=== PATIENT | male | born 1945 | race Caucasian/White ===

== ENCOUNTER 2019-05-05 23:27 | Inpatient (IN) | payer SELFPAY ==
[~2019-05-05] VITALS: Ht 177.8 cm; Wt 91.6 kg
--- NOTE | 2019-05-05 23:56 | NUR ---
L TOE SWELLING. L BUTTOCKS REDNESS. SCRATCHES NOTED L THIGH.
[2019-05-06] MEDS ORDERED: IV NS 0.9% 1,000 ML BAG IV ONE ×2 (00:30→01:30)
[2019-05-06 00:54] LABS: BASOPHILS # (AUTO) 0.1 /CMM (0.0-0.2); BASOPHILS % (AUTO) 0.4 % (0.0-2.0); HEMATOCRIT 48 % (39-51); HEMOGLOBIN 16.8 g/dL (13.5-17.5); LYMPHOCYTES # (AUTO) 0.9 /CMM (0.8-4.8); LYMPHOCYTES % (AUTO) 5.7 % (20.0-44.0); MEAN CORPUSCULAR HGB CONC 35 g/dl (31.0-36.0); MEAN CORPUSCULAR VOLUME 94 fL (80-96); MONOCYTES # (AUTO) 1.7 /CMM (0.1-1.30); MONOCYTES % (AUTO) 11.3 % (2.0-12.0); NEUTROPHILS # (AUTO) 12.3 /CMM (1.8-8.9); NEUTROPHILS % (AUTO) 82.6 % (43.0-81.0); PLATELET COUNT (AUTO) 313 /CMM (150-450); RED BLOOD CELL COUNT(AUTO) 5.13 MIL/uL (4.5-6.0); WHITE BLOOD COUNT (AUTO) 14.9 K/uL (4.3-11.0)
[2019-05-06 01:10] LABS: APPEARANCE,URINE Slightly Cloudy (CLEAR); BILIRUBIN,URINE SMALL (NEGATIVE); BLOOD, URINE Trace-lysed Ery/uL (NEGATIVE); COLOR,URINE Other (YELLOW); KETONES,URINE 15 (NEGATIVE); LEUKOCYTE ESTERASE ,URINE Negative (NEGATIVE); NITRITE, URINE Negative (NEGATIVE); PH,URINE 5.5 (5.0-8.0); PROTEIN,URINE 100 mg/dl (NEGATIVE); UGLUCOSE 250 MG/DL mg/dL (NEGATIVE); UROBILINOGEN,URINE 0.2 EU/dL (0.2)
[2019-05-06 01:24] LABS: CALCIUM, SERUM 9.7 mg/dL (8.5-10.1); CARBON DIOXIDE 25 mmol/L (21-32); CHLORIDE 99 mmol/L (98-107); CREATININE 1.2 mg/dL (0.6-1.3); GLUCOSE 210 mg/dL (74-106); POTASSIUM 4.1 mmol/L (3.5-5.1); SODIUM SERUM 135 mmol/L (136-145); UREA NITROGEN, BLOOD 21 mg/dL (7-18)
[2019-05-06 01:29] LABS: ALANINE AMINOTRANSFERASE 34 U/L (12-78); ALBUMIN 4.1 g/dL (3.4-5.0); ALKALINE PHOSPHATASE 65 U/L (46-116); ASPARTATE AMINOTRANSFERASE 47 U/L (15-37); BILIRUBIN,DIRECT 0.2 mg/dL (0.0-0.2)
[2019-05-06] MEDS ORDERED: PIPERACILLIN /TAZOBACTAM 3.375 G in IV D5W 50 ML IV ONE (01:30)
[2019-05-06] MEDS ORDERED: VANCOMYCIN 1 GM in IV D5W 250 ML IV ONE (01:30)
[2019-05-06] MEDS ORDERED: PIPERACILLIN /TAZOBACTAM 3.375 G VIAL IV ONE (01:42)
[2019-05-06] MEDS ORDERED: VANCOMYCIN 1 GM VIAL ONE (01:42)
[2019-05-06 01:58] LABS: BACTERIA,URINE Few /HPF (None Seen); SQUAMOUS EPITHELIAL CELL,UR Rare /HPF (None Seen)
[2019-05-06] MEDS ORDERED: ONDANSETRON HCL/PF 4 MG/2 ML VIAL IVP PRN (02:30)
[2019-05-06] MEDS ORDERED: Z GUARD REMEDY 2 OZ OINT TP PRN (02:30)
[2019-05-06] MEDS ORDERED: MAG HYDROX/AL HYDROX/SIMETH 30 ML UDC PO PRN (02:30)
--- NOTE | 2019-05-06 02:38 | NUR ---
REPORT GIVEN TO SUSANA DUVALL.
[2019-05-06 02:50] VITALS: BP 120/84
--- NOTE | 2019-05-06 02:50 | NUR ---
DEGREASER OPERATOR NOTES 0250 PATIENT ARRIVED ON THE UNIT AT 0250 VIA GURNEY. PATIENT ON CONTACT ISOLATION FOR BED BUGS. PATIENT A/O X 1, PATIENT ONLY ABLE TO ANSWER WITH HIS NAME WHEN ASKED. PATIENT DOES NOT COMMUNICATE, NONINTERACTIVE AND NONCONVERSANT WHEN SPOKEN TO. UNABLE TO GET INFORMATION FROM PATIENT. VITAL SIGNS STABLE. ON ROOM AIR, TOLERATING WELL. NO SIGNS OF RESPIRATORY DISTRESS. NO SIGNS OF SHORTNESS OF BREATH. IV SITE RAC #20G, INTACT AND PATENT, FLUSHED. PATIENT HAS WEAKNESS. ENRIQUEZ CATH 16 FR, INTACT, DRAINING WELL, PRICILLA URINE. PATIENT HAS NO COMPLAINTS OF PAIN, NO SIGNS OF FACIAL GRIMACING INDICATING PAIN OR DISCOMFORT. RECEIVED PATIENT DIRTY AND DISHEVELED FROM ER. PATIENT CLEANED UP, DRY, COMFORTABLE. SAFETY PRECAUTIONS IMPLEMENTED; CALL LIGHT WITHIN REACH, BED LOCKED, BED LOWEST POSITION, SIDE RAILS UP X2. WILL CONTINUE TO MONITOR.
--- NOTE | 2019-05-06 02:51 | NUR ---
RN NOTES CORRECTION: PATIENT ARRIVED ON THE UNIT AT 0220.
[2019-05-06] MEDS: IV NS 0.9% 1,000 ML IV PRN ×2 (03:56→14:20)
[2019-05-06 04:00] VITALS: BP 111/65
--- NOTE | 2019-05-06 06:52 | NUR ---
RN CLOSING NOTES PATIENT CURRENTLY ASLEEP, RESTING COMFORTABLY IN BED, EASILY AROUSABLE WHEN YOU STATE HIS FIRST NAME. VITAL SIGNS STABLE. PATIENT REMAINS ON ROOM AIR, TOLERATING WELL. NO SIGNS OF RESPIRATORY DISTRESS, NO SHORTNESS OF BREATH NOTED, RESPIRATIONS EVEN AND UNLABORED. NO SIGNS OF PAIN, NO SIGNS OF FACIAL GRIMACING OR DISCOMFORT INDICATING PAIN. IV SITE RAC #20G, REMAINS INTACT AND PATENT, WITH IVF RUNNING AT 100 ML/HR, NO REDNESS/INFILTRATION NOTED. PATIENT KEPT CLEAN, DRY, COMFORTABLE. CONTACT ISOLATION MAINTAINED. SAFETY PRECAUTIONS IMPLEMENTED; CALL LIGHT WITHIN REACH, BED LOCKED, BED LOWEST POSITION, SIDE RAILS UP X2, BED ALARM ON. WILL ENDORSE TO DAYSHIFT NURSE FOR CONTINUITY OF CARE.
[2019-05-06] MEDS ORDERED: PANT40TA4 PO (07:23)
[2019-05-06] MEDS ORDERED: ATOR10TA PO (07:23)
[2019-05-06] MEDS ORDERED: METF-440 PO (07:23)
[2019-05-06] MEDS ORDERED: AMLO10TA7 PO (07:23)
[2019-05-06] MEDS ORDERED: LOSA100T31 PO (07:23)
[2019-05-06] MEDS ORDERED: METO-357 PO (07:23)
--- NOTE | 2019-05-06 07:35 | NUR ---
ASSEMBLER METAL FURNITURE OPENING NOTES RECEIVED PATIENT IN BED ASLEEP, AROUSABLE TO VERBAL AND TACTILE STIMULI. ALERT AND ORIENTED X2-3 TO NAME, DATE AND PLACE. HOB ELEVATED. NO SOB OBSERVED. SPO2 96% ROOM AIR. ON TELE MONITORING SR: 75. DENIES ANY C/O PAIN NOR DISCOMFORT AT THIS TIME. BED IN LOWEST POSITION, LOCKED. CALL LIGHT WITHIN REACH. F/C INTACT AND PATENT DRAINING PRICILLA COLORED URINE VIA GRAVITY VIA BEDSIDE. RIGHT AC # 20 INTACT AND PATENT INFUSING NS @ 100ML/HR KARTIK WELL. RESTING COMFORTABLY IN BED.
[2019-05-06 08:00] VITALS: BP 111/70
[2019-05-06 08:59] LABS: BASOPHILS % (AUTO) 0.4 % (0.0-2.0); EOSINOPHILS % (AUTO) 0.3 % (0.0-6.0); HEMATOCRIT 42 % (39-51); HEMOGLOBIN 14.2 g/dL (13.5-17.5); LYMPHOCYTES # (AUTO) 1.9 /CMM (0.8-4.8); LYMPHOCYTES % (AUTO) 16.1 % (20.0-44.0); MEAN CORPUSCULAR HGB CONC 34 g/dl (31.0-36.0); MEAN CORPUSCULAR VOLUME 94 fL (80-96); MONOCYTES # (AUTO) 1.8 /CMM (0.1-1.30); NEUTROPHILS # (AUTO) 8.1 /CMM (1.8-8.9); NEUTROPHILS % (AUTO) 68.2 % (43.0-81.0); PLATELET COUNT (AUTO) 273 /CMM (150-450); RED BLOOD CELL COUNT(AUTO) 4.42 MIL/uL (4.5-6.0); WHITE BLOOD COUNT (AUTO) 11.8 K/uL (4.3-11.0)
[2019-05-06 09:15] LABS: CALCIUM, SERUM 8.4 mg/dL (8.5-10.1); CREATININE 1.2 mg/dL (0.6-1.3); POTASSIUM 3.6 mmol/L (3.5-5.1)
--- NOTE | 2019-05-06 10:00 | NUR ---
MS RN NOTES PATIENT'S SISTER LINA GRIER CALLED AND STATED THAT SHE USED TO LIVE WITH PATIENT BUT AT THIS TIME, SISTER CURRENTLY RESIDES AT A PENITENTIARY. LINA'S CONTACT INFO CELL . PHONE CALL WAS TRANSFERRED TO PATIENT'S ROOM.
[2019-05-06 11:05] LABS: LYMPHOCYTES % (MANUAL) 16 % (16-48); MONOCYTES % (MANUAL) 14 % (0-11.0); NEUTROPHILS % (MANUAL) 70 (42-76)
[2019-05-06] MEDS ORDERED: DEXTROSE 50%-WATER 50 ML DISP.SYRIN IV PRN (13:30)
[2019-05-06 16:00] VITALS: BP 111/70
[2019-05-06] MEDS: BLOOD SUGAR DIAGNOSTIC 1 EACH STRIP IN SCH ×2 (17:13→21:46)
[2019-05-06] MEDS: INSULIN REGULAR, HUMAN 100 UNIT/ML 3 ML VIAL SQ PRN ×2 (17:21→23:17)
--- NOTE | 2019-05-06 18:50 | NUR ---
MS RN CLOSING NOTES ALERT AND ORIENTED X2. HOB ELEVATED. NO SOB OBSERVED. DENIES ANY C/O PAIN NOR DISCOMFORT AT THIS TIME. PATIENT OBSERVED WITH INCREASED ALERTNESS COMPARE TO BEGINNING OF SHIFT. DENIES ANY C/O HEADACHE/ DIZZINESS/NAUSEA/VOMITING. PATIENT MORE TALKATIVE NOW. RIGHT AC # 20 INTACT AND PATENT INFUSING NS @ 100ML/HR KARTIK WELL. CONTACT PRECAUTIONS OBSERVED AT ALL TIMES. BED IN LOWEST POSITION, LOCKED. CALL LIGHT WITHIN REACH. IN NO APPARENT DISTRESS.
--- NOTE | 2019-05-06 19:16 | NUR ---
MS RN NOTES PATIENT OFF UNIT FOR CT SCAN WITHOUT CONTRAST.
--- NOTE | 2019-05-06 19:28 | NUR ---
RN NOTES RECEIVED PATIENT JUST CAME BACK FROM RADIOLOGY DEPARTMENT, CALM, RESTING COMFORTABLY, IV ACCESSON HIS RIGHT AC G#20 INTACT AND PATENT, SAFETY MEASURES IN PLACE, ASPIRATION PRECAUTION EMPHASIZE, REPOSITIONED FOR COMFORT, ORIENTED TO UNIT, ROOM AND THE USE OF CALL LIGHT KEEP CLEAN DRY AND COMFORTABLE, WILL CONTINUE TO MONITOR ACCORDINGLY.
--- NOTE | 2019-05-06 19:40 | NUR ---
RN NOTES RECEIVED PHONE CALL FROM PATIENT'S NIECE SPARKLE, INFORMED REGARDING PATIENT'S CURRENT CONDITION. SPARKLE VERBALIZES UNDERSTANDING.
[2019-05-06 20:00] VITALS: BP 126/76
--- NOTE | 2019-05-06 20:18 | NUR ---
RN NOTES PATIENT'S SISTER CALLED, INFORMED HER REGARDING PT'S CURRENT CONDITION. PATIENT IS RESTING COMFORTABLY AT THIS TIME, ALL NEEDS ANTICIPATED, WILL CONTINUE TO MONITOR ACCORDINGLY.
[2019-05-06] MEDS: ATORVASTATIN 10 MG TABLET PO SCH (21:42)
[2019-05-07] MEDS: IV NS 0.9% 1,000 ML IV PRN ×2 (04:37→18:05)
[2019-05-07] MEDS: BLOOD SUGAR DIAGNOSTIC 1 EACH STRIP IN SCH ×4 (07:14→21:44)
[2019-05-07] MEDS: INSULIN REGULAR, HUMAN 100 UNIT/ML 3 ML VIAL SQ PRN ×3 (07:15→21:43)
--- NOTE | 2019-05-07 07:15 | NUR ---
MS JADIEL INITIAL NOTES Received report at bedside. Received patient in bed, sleeping, easily aroused. On contact isolation with result pending on bug infestation as reported. No signs and symptoms of distress. On IVF therapy with no redness noted on site. Safety measures in place. Will continue to monitor and assess patient
[2019-05-07 07:25] LABS: BASOPHILS # (AUTO) 0.1 /CMM (0.0-0.2); BASOPHILS % (AUTO) 0.8 % (0.0-2.0); EOSINOPHILS % (AUTO) 2.2 % (0.0-6.0); HEMATOCRIT 43 % (39-51); HEMOGLOBIN 14.6 g/dL (13.5-17.5); LYMPHOCYTES # (AUTO) 1.9 /CMM (0.8-4.8); LYMPHOCYTES % (AUTO) 21.7 % (20.0-44.0); MEAN CORPUSCULAR HGB CONC 34 g/dl (31.0-36.0); MEAN CORPUSCULAR VOLUME 94 fL (80-96); MONOCYTES % (AUTO) 11.4 % (2.0-12.0); NEUTROPHILS # (AUTO) 5.7 /CMM (1.8-8.9); NEUTROPHILS % (AUTO) 63.9 % (43.0-81.0); PLATELET COUNT (AUTO) 240 /CMM (150-450); WHITE BLOOD COUNT (AUTO) 8.9 K/uL (4.3-11.0)
--- NOTE | 2019-05-07 07:30 | NUR ---
RN NOTES ALL NEEDS ATTENDED AND MET ABLE TO REST AND SLEPT AT INTERVALS, ENDORSED TO AM NURSE FOR CONTINUITY OF CARE.
[2019-05-07] MEDS: PANTOPRAZOLE 40 MG TABLET.DR PO SCH (07:40)
[2019-05-07 07:42] LABS: CALCIUM, SERUM 8.4 mg/dL (8.5-10.1); CREATININE 0.8 mg/dL (0.6-1.3); MAGNESIUM 1.7 mg/dL (1.8-2.4); PHOSPHORUS 2.5 mg/dL (2.5-4.9); POTASSIUM 3.2 mmol/L (3.5-5.1)
[2019-05-07 07:46] LABS: THYROID STIMULATING HORMONE 1.553 uIU/mL (0.358-3.74)
[2019-05-07] MEDS: ASPIRIN 81 MG TAB.CHEW PO SCH (08:36)
[2019-05-07] MEDS: AMLODIPINE BESYLATE 10 MG TABLET PO SCH (08:37)
[2019-05-07] MEDS: METOPROLOL SUCCINATE 50 MG TAB.SR.24H PO SCH (08:37)
--- NOTE | 2019-05-07 09:48 | NUR ---
MS DUVALL Notes Patient transported by transport team to Radiology for CTA as ordered. Addendum: 05/07/19 at 1010 by FRANCISCA BANKS RN Patient returned from Radiology in stable condition. Transported back by transport team
[2019-05-07] MEDS ORDERED: IV NS 0.9% 250 ML IV ONE (09:52)
[2019-05-07] MEDS ORDERED: IOHEXOL-350 100 ML VIAL IV ONE (09:52)
[2019-05-07] MEDS ORDERED: CT SWABBABLE VALVE TRANS SET 1 EA INFUS.SET MC ONE (09:52)
[2019-05-07] MEDS: POTASSIUM CHLORIDE 20 MEQ TAB.PRT.SR PO SCH ×2 (10:28→11:23)
[2019-05-07] MEDS: Magnesium 1GM/D5W 100ML PREMIX 100 ML IV SCH ×2 (11:24→17:57)
--- NOTE | 2019-05-07 14:33 | NUR ---
Social service consult requested by Dr. Hagen for possible APS report. Pt. is a 73 y/o male with PMH of hypertension, DM type 2, and previous stroke treated at [facility] (date unknown) who was admitted to the hospital for rhabdomyolysis. Patient presented to ED via EMS paramedics last night when family went to check on him due to not hearing from him. Per ED notes, paramedics found the patient on the ground at residence, dirty and disheveled, in squalor conditions. SW contacted pt's niece Radha Leone to inquire about pt's home condition. Per Radha, pt's sister Mary was residing with the pt. until she had a stroke and now resides at [facility]. Pt. resides alone. Per niece, pt's home is inhabitable and unsafe. Pt. has no caregivers. SW to file APS report for safety.
--- NOTE | 2019-05-07 18:45 | NUR ---
MS RN CLOSING NOTES Patient awake, alert x1-2 and verbally responsive. Have episodes of confusion and forgetfulness. All due meds given and tolerated. No SOB noted. No signs and symptoms of distress. Kept patient clean, dry and comfortable. Remained on contact isolation for precaution. Electrolytes replaced. dairy machine operator farmworker aware of patient condition at home � to be investigated. Safety measures in place. Bed in lowest position with bed alarm on and call light within reach. Will endorse to oncoming shift nurse
--- NOTE | 2019-05-07 19:30 | NUR ---
MS RN OPENING NOTE PM BEDSIDE REPORT RECIEVED FROM MEGHAN. PATIENT ON CONTACT ISOLATION. PT SEEN Patient awake, alert x1-2, verbally responsive REVIEWED POC QUESTIONS CONCERNS ADDRESSED WILL REINFORCE NEEDED. PT HAVING episodes of confusion and forgetfulness PER REPORT. PT HAS No SOB noted OR ANY signs and symptoms of distress. Safety measures in place. Bed in lowest position with bed alarm on and call light within reach. WILL CONT TO MONITOR.
[2019-05-07 20:05] VITALS: BP 146/71
[2019-05-07] MEDS: ATORVASTATIN 10 MG TABLET PO SCH (21:44)
[2019-05-08] MEDS: QUETIAPINE FUMARATE 25 MG TABLET PO PRN (00:29)
[2019-05-08] MEDS: MAGNESIUM HYDROXIDE 30 ML UDC PO PRN (00:29)
[2019-05-08] MEDS: IV NS 0.9% 1,000 ML IV PRN (05:39)
[2019-05-08] MEDS: BLOOD SUGAR DIAGNOSTIC 1 EACH STRIP IN SCH ×4 (06:51→21:03)
[2019-05-08] MEDS: INSULIN REGULAR, HUMAN 100 UNIT/ML 3 ML VIAL SQ PRN ×3 (06:51→21:04)
[2019-05-08] MEDS: PANTOPRAZOLE 40 MG TABLET.DR PO SCH (06:51)
--- NOTE | 2019-05-08 07:00 | NUR ---
RN PM CLOSING NOTE. PATIENT SEEN IN NO APPARENT DDISTRESS. DENIES PAIN. SAFETY MESARUES IN PLACE. WILL ENDORSE POC AND REPORT TO DAY NURSE. PATIETN CONFUSED ORIETED X1. PATIENT KEEPS STATING THAT HE IS AT HIS HOURSE. HEN REORIENTED HE GETS FRUSTRATED STATES "YOU TRYIN G TO FOOL ME?" WILL ENDORSE TO DAY NRUSE.
[2019-05-08 07:27] LABS: BASOPHILS # (AUTO) 0.1 /CMM (0.0-0.2); BASOPHILS % (AUTO) 0.6 % (0.0-2.0); EOSINOPHILS % (AUTO) 2.4 % (0.0-6.0); HEMATOCRIT 44 % (39-51); HEMOGLOBIN 15.3 g/dL (13.5-17.5); LYMPHOCYTES # (AUTO) 3.1 /CMM (0.8-4.8); LYMPHOCYTES % (AUTO) 31.6 % (20.0-44.0); MEAN CORPUSCULAR HGB CONC 35 g/dl (31.0-36.0); MEAN CORPUSCULAR VOLUME 94 fL (80-96); MONOCYTES # (AUTO) 1.1 /CMM (0.1-1.30); NEUTROPHILS # (AUTO) 5.2 /CMM (1.8-8.9); NEUTROPHILS % (AUTO) 54.4 % (43.0-81.0); PLATELET COUNT (AUTO) 290 /CMM (150-450); RED BLOOD CELL COUNT(AUTO) 4.72 MIL/uL (4.5-6.0); WHITE BLOOD COUNT (AUTO) 9.7 K/uL (4.3-11.0)
[2019-05-08 07:36] LABS: CALCIUM, SERUM 8.6 mg/dL (8.5-10.1); CREATININE 0.8 mg/dL (0.6-1.3); POTASSIUM 3.4 mmol/L (3.5-5.1)
[2019-05-08 08:00] VITALS: BP 186/94
--- NOTE | 2019-05-08 08:00 | NUR ---
m/s process owner: initial assessment received pt in bed in supine position. pt comfortable lying supine and refused to have his behind assessed. instructed to call for assistance. will continue to monitor.
[2019-05-08] MEDS: ASPIRIN 81 MG TAB.CHEW PO SCH (08:15)
[2019-05-08] MEDS: METOPROLOL SUCCINATE 50 MG TAB.SR.24H PO SCH (08:15)
[2019-05-08] MEDS: AMLODIPINE BESYLATE 10 MG TABLET PO SCH (08:15)
[2019-05-08] MEDS: MUPIROCIN OINT 2% 22 GM TUBE TP SCH (09:23)
[2019-05-08] MEDS: CLOTRIMAZOLE 1% 15 GM TUBE TP SCH (09:23)
[2019-05-08 10:00] VITALS: BP 165/76
--- NOTE | 2019-05-08 10:00 | NUR ---
m/s carding doubler: notes pt refused to dress his left leg/knee abrasion/ble. cream applied as ordered. pt refused to be turned and repositioned. instructed to call for assistance. pt wants to lay supine and if he moves his back will hurt as stated. will continue to monitor.
[2019-05-08] MEDS ORDERED: POTASSIUM CHLORIDE 20 MEQ TAB.PRT.SR PO SCH (11:00)
--- NOTE | 2019-05-08 11:34 | NUR ---
m/s housecalls nurse: md visit seen and examined by dr. mcgraw with new orders. orders acknowledged.
--- NOTE | 2019-05-08 12:00 | NUR ---
m/s rack pusher: notes pt remains non-compliant with turning and repositioning despite teaching provided prn. will continue to monitor.
--- NOTE | 2019-05-08 12:40 | NUR ---
m/s dimensional inspector: neuro consult seen and examined by sheba schroeder (analysis specialist) with new orders. orders acknowledged.
--- NOTE | 2019-05-08 13:30 | NUR ---
m/s alarm adjuster: notes consent obtained for cta carotid. electronic instrument trades worker notified, spoke to lamin.
[2019-05-08] MEDS ORDERED: IV NS 0.9% 250 ML IV ONE (13:56)
[2019-05-08] MEDS ORDERED: IOHEXOL-350 100 ML VIAL IV ONE (13:56)
[2019-05-08] MEDS ORDERED: CT SWABBABLE VALVE TRANS SET 1 EA INFUS.SET MC ONE (13:56)
--- NOTE | 2019-05-08 14:15 | NUR ---
m/s outside plant field engineer: notes pt back from cta carotid via bed. instructed to call for assistance. will monitor.
[2019-05-08] MEDS: CLOPIDOGREL BISULFATE 75 MG TABLET PO SCH (14:18)
[2019-05-08] MEDS: HYDROCODONE/APAP 5/325MG 1 EACH TABLET PO PRN (14:18)
--- NOTE | 2019-05-08 14:18 | NUR ---
m/s artist suspect: notes c/o 02/28 generalized discomfort. medicated with norco 1 tab po as ordered. instructed to call for assistance.
--- NOTE | 2019-05-08 15:18 | NUR ---
m/s certified emergency vehicle technician: notes pt resting comfortable and watching tv at this time. voiced no discomfort. instructed to call for assistance.
[2019-05-08 16:00] VITALS: BP 135/101
--- NOTE | 2019-05-08 17:00 | NUR ---
m/s flight engineer: notes dinner served. hob elevated. pt refused insulin coverage for kv=[id number]. instructed to call for assistance. will monitor.
--- NOTE | 2019-05-08 19:05 | NUR ---
m/s lost and found clerk: notes report given to ashley (ruiz) for continuity of care.
[2019-05-08 20:00] VITALS: BP 149/30
[2019-05-08 20:16] VITALS: BP 134/51
[2019-05-08] MEDS: ATORVASTATIN 10 MG TABLET PO SCH (21:08)
[2019-05-09] MEDS: IV NS 0.9% 1,000 ML IV PRN (01:53)
[2019-05-09] MEDS: MAGNESIUM HYDROXIDE 30 ML UDC PO PRN (03:47)
[2019-05-09] MEDS: QUETIAPINE FUMARATE 25 MG TABLET PO PRN (03:47)
[2019-05-09] MEDS: ACETAMINOPHEN 325 MG TABLET PO PRN (03:47)
--- NOTE | 2019-05-09 06:30 | NUR ---
RN PM CLOSING NOTE. PATIENT SEEN IN NO APPARENT DDISTRESS. DENIES PAIN. SAFETY MESARUES IN PLACE. WILL ENDORSE POC AND REPORT TO DAY NURSE. PATIETN CONFUSED ORIETED X3 states he feels sleepy. bed alarm active call light in reach. denies pain
[2019-05-09] MEDS: PANTOPRAZOLE 40 MG TABLET.DR PO SCH (06:39)
[2019-05-09] MEDS: BLOOD SUGAR DIAGNOSTIC 1 EACH STRIP IN SCH ×4 (06:42→22:04)
[2019-05-09] MEDS: INSULIN REGULAR, HUMAN 100 UNIT/ML 3 ML VIAL SQ PRN ×4 (06:42→22:06)
[2019-05-09 07:06] LABS: BASOPHILS # (AUTO) 0.1 /CMM (0.0-0.2); BASOPHILS % (AUTO) 0.7 % (0.0-2.0); EOSINOPHILS % (AUTO) 1.9 % (0.0-6.0); HEMATOCRIT 44 % (39-51); HEMOGLOBIN 15.1 g/dL (13.5-17.5); LYMPHOCYTES # (AUTO) 2.7 /CMM (0.8-4.8); LYMPHOCYTES % (AUTO) 27.9 % (20.0-44.0); MEAN CORPUSCULAR HGB CONC 34 g/dl (31.0-36.0); MEAN CORPUSCULAR VOLUME 94 fL (80-96); MONOCYTES % (AUTO) 10.1 % (2.0-12.0); NEUTROPHILS # (AUTO) 5.7 /CMM (1.8-8.9); NEUTROPHILS % (AUTO) 59.4 % (43.0-81.0); PLATELET COUNT (AUTO) 319 /CMM (150-450); RED BLOOD CELL COUNT(AUTO) 4.68 MIL/uL (4.5-6.0); WHITE BLOOD COUNT (AUTO) 9.6 K/uL (4.3-11.0)
[2019-05-09 07:23] LABS: CALCIUM, SERUM 8.4 mg/dL (8.5-10.1); CREATININE 0.8 mg/dL (0.6-1.3); MAGNESIUM 1.9 mg/dL (1.8-2.4); PHOSPHORUS 3.1 mg/dL (2.5-4.9); POTASSIUM 3.3 mmol/L (3.5-5.1)
[2019-05-09 08:00] VITALS: BP 155/101
--- NOTE | 2019-05-09 08:00 | NUR ---
rn notes received patient in the bed a/ox2/3, patient has no acute respiratory distress , v/s taken bp 155/101 administered scheduled medication, also patient was complaining of pain generalized 05/01 , assist patient turn and reposition q 2 hr using pillows. administered scheduled medication. Needs attended and anticipated, Tapia catheter draining yellow output, infusing NS at 100 ml/hr on right ac area intact. call light within to reach, safety precaution maintained all the time.
[2019-05-09] MEDS: CLOPIDOGREL BISULFATE 75 MG TABLET PO SCH (08:42)
[2019-05-09] MEDS: ASPIRIN 81 MG TAB.CHEW PO SCH (08:42)
[2019-05-09] MEDS: METOPROLOL SUCCINATE 50 MG TAB.SR.24H PO SCH (08:43)
[2019-05-09] MEDS: AMLODIPINE BESYLATE 10 MG TABLET PO SCH (08:43)
[2019-05-09] MEDS: HYDROCODONE/APAP 5/325MG 1 EACH TABLET PO PRN (08:43)
--- NOTE | 2019-05-09 08:43 | NUR ---
rn notes administered narco 5/325 mg po prn for generalized pain 05/01 per patient request, v/s taken bp 155/101, p-83, r20, continued monitoring.
[2019-05-09] MEDS: CLOTRIMAZOLE 1% 15 GM TUBE TP SCH (08:44)
[2019-05-09] MEDS: MUPIROCIN OINT 2% 22 GM TUBE TP SCH (08:44)
[2019-05-09] MEDS ORDERED: POTASSIUM CHLORIDE 20 MEQ TAB.PRT.SR PO ONE (10:00)
--- NOTE | 2019-05-09 10:26 | NUR ---
MS RN NOTE RECEIVED REPORT FROM SARAH DUVALL. PATIENT SLEEPING IN BED, RESTING COMFORTABLY. PATIENT BREATHING IS EVEN AND UNLABORED. PATIENT IN NO ACUTE DISTRESS. NO SOB NOTED. PATIENT BED IS LOCKED AND IN LOWEST POSITION. CALL LIGHT WITHIN REACH. WILL CONTINUE TO MONITOR.
--- NOTE | 2019-05-09 10:58 | NUR ---
MS RN NOTE ORDERS TO REMOVED ENRIQUEZ CATHETER PER DR. PONCE. CARRIED OUT ORDERS FOLLOWED. WILL CONTINUE TO MONITOR FOR URINE OUTPUT.
--- NOTE | 2019-05-09 11:37 | NUR ---
SW filed APS for grave disability and safety concerns at home. APS intake ID#[id number].
[2019-05-09 16:00] VITALS: BP_SYST 151; BP_SYST 157; BP_DIAS 87
[2019-05-09 18:00] VITALS: BP 138/62
--- NOTE | 2019-05-09 18:08 | NUR ---
MS RN NOTE PATIENT HAS BEEN VOIDING THROUGHOUT DAY IN URINAL AND DIAPER. 350 CC NOTED IN URINAL, CLEAR AND YELLOW.
--- NOTE | 2019-05-09 18:51 | NUR ---
MS RN CLOSING NOTE PATIENT IN BED RESTING COMFORTABLY. PATIENT IN NO ACUTE DISTRESS. NO SOB NOTED. PATIENT BREATHING IS EVEN AND UNLABORED. PATIENT KEPT CLEAN, DRY, AND COMFORTABLE. WOUND CARE PROVIDED ORDERED. PATIENT MAINTAINED ON CONTACT ISOLATION PRECAUTIONS. PATIENT EXTREMITIES OFFLOADED ON PILLOWS MUCH PATIENT WOULD ALLOW. ALL NURSING NEEDS MET. PATIENT BED IS LOCKED AND IN LOWEST POSITION. CALL LIGHT WITHIN REACH. WILL ENDORSE CARE TO PM SHIFT FOR CAREY.
--- NOTE | 2019-05-09 19:30 | NUR ---
MS RN OPENING NOTES RECEIVED PATIENT FROM MORNING SHIFT, ALERT AND ORIENTED X 1-3 WITH NO DISTRESS NOTED. VERBALLY RESPONSIVE. BREATHING REGULAR AND UNLABORED ON ROOM AIR. RIGHT AC IV G20 INTACT AND PATENT FLUSHING WELL WITH NO BLEEDING OR S/S OF INFILTRATION/INFECTION NOTED. MAINTAINED ON CONTACT ISOLATION FOR BED BUG CONTAMINATION. CALL LIGHT IN REACH, BED LOW AND LOCKED. WILL CONTINUE TO MONITOR.
[2019-05-09 20:18] VITALS: BP 161/80
[2019-05-09] MEDS: ATORVASTATIN 40 MG TABLET PO SCH (21:56)
[2019-05-10] MEDS: ACETAMINOPHEN 325 MG TABLET PO PRN (06:09)
--- NOTE | 2019-05-10 06:27 | NUR ---
MS RN NOTES COMPLAINED OF 3/10 HEADACHE, DIVERSIONAL ACTIVITY LIKE WATCHING TV INEFFECTIVE; TYLENOL 325MG 2TABS GIVEN BY MOUTH. WILL CONTINUE TO MONITOR.
[2019-05-10 06:44] LABS: THYROID STIMULATING HORMONE 3.946 uIU/mL (0.358-3.74)
[2019-05-10 06:46] LABS: CREATININE 0.8 mg/dL (0.6-1.3); PHOSPHORUS 3.3 mg/dL (2.5-4.9); POTASSIUM 3.6 mmol/L (3.5-5.1)
[2019-05-10] MEDS: BLOOD SUGAR DIAGNOSTIC 1 EACH STRIP IN SCH ×4 (06:51→21:41)
[2019-05-10] MEDS: INSULIN REGULAR, HUMAN 100 UNIT/ML 3 ML VIAL SQ PRN ×4 (06:52→21:42)
--- NOTE | 2019-05-10 06:55 | NUR ---
MS RN CLOSING NOTES PATIENT IN BED, ALERT AND ORIENTED X 2-3 WITH EPISODES OF CONFUSION. VERBALLY RESPONSIVE. BREATHING REGULAR AND UNLABORED ON ROOM AIR. RIGHT AC IV G20 INTACT AND PATENT FLUSHING WELL WITH NO BLEEDING OR S/S OF INFILTRATION/INFECTION NOTED. MAINTAINED ON CONTACT ISOLATION FOR BED BUG CONTAMINATION. COMPLAINED OF 3/10 HEADACHE, TYLENOL 650MG GIVEN ORDERED. LATEST BLOOD SUGAR OF 150mg/dl TAKEN, 2units GIVEN SQ. MONITORED FOR S/S OF HYPOGLYCEMIA. CALL LIGHT IN REACH, BED LOW AND LOCKED. WILL ENDORSE TO MORNING SHIFT FOR CAREY.
--- NOTE | 2019-05-10 07:30 | NUR ---
MS RN OPENING NOTE RECEIVED PT IN BED, ALERT TO NAME, NO ACUTE DISTRESS NOTED, BREATHING IS EVEN AND UNLABORED ON ROOM AIR. RIGHT AC#20G IS SALINE LOCKED WITHOUT REDNESS OR SWELLING. ASPIRATION AND CONTACT PRECAUTIONS MAINTAINED, ALL NEEDS ATTENDED TO. BED IS LOCKED AND IN LOWEST POSITION, SIDE RAILS UP X2, BED ALARM ON, CALL LIGHT AND POSSESSIONS WITHIN REACH.
[2019-05-10 08:00] VITALS: BP 132/80
[2019-05-10] MEDS: ASPIRIN 81 MG TAB.CHEW PO SCH (08:54)
[2019-05-10] MEDS: AMLODIPINE BESYLATE 10 MG TABLET PO SCH (08:54)
[2019-05-10] MEDS: CLOPIDOGREL BISULFATE 75 MG TABLET PO SCH (08:54)
[2019-05-10] MEDS: PANTOPRAZOLE 40 MG TABLET.DR PO SCH (08:54)
[2019-05-10] MEDS: METOPROLOL SUCCINATE 50 MG TAB.SR.24H PO SCH (08:54)
[2019-05-10] MEDS: MUPIROCIN OINT 2% 22 GM TUBE TP SCH (08:55)
[2019-05-10] MEDS: CLOTRIMAZOLE 1% 15 GM TUBE TP SCH (08:55)
--- NOTE | 2019-05-10 09:39 | NUR ---
MS RN NOTE INFORMED PRIMARY HOSPITALIST THAT PT HAS BEEN COMPLAINING OF SEVERE LEFT HIP PAIN AND WAS FOUND DOWN ON THE GROUND AT HOME BY EMS WITH POSSIBLE UNWITNESSED FALL AND NO IMAGING WAS DONE DURING ADMISSION. ORDERS RECEIVED FOR STAT LEFT HIP AND PELVIC XRAYS. VERIFIED VIA READ BACK AND CARRIED OUT.
[2019-05-10] MEDS: HYDROCODONE/APAP 5/325MG 1 EACH TABLET PO PRN ×2 (11:18→21:10)
[2019-05-10 16:00] VITALS: BP 132/81
--- NOTE | 2019-05-10 19:15 | NUR ---
M/S RN NOTES PATIENT AWAKE, LYING IN BED, NO RESPIRATORY DISTRESS, NO C/O PAIN AT THIS TIME. CONTACT PRECAUTION MAINTAINED. PATIENT'S NEEDS ATTENDED. BED ON LOWEST LOCKED POSITION, CALL LIGHT WITHIN REACH. WILL ENDORSE TO ONCOMING NURSE.
--- NOTE | 2019-05-10 19:27 | NUR ---
MS RN RECEIVE PT IN BED A/O X 1, RESPIRATION EVEN AND UNLABORED, NO S/S OF DISTRESS. SAFETY MEASURES IN PLACE. WILL CONT TO MTR.
[2019-05-10 20:00] VITALS: BP_SYST 143; BP_SYST 144; BP_DIAS 70; BP_DIAS 76
[2019-05-10] MEDS: ATORVASTATIN 40 MG TABLET PO SCH (21:09)
[2019-05-11] MEDS: BLOOD SUGAR DIAGNOSTIC 1 EACH STRIP IN SCH ×2 (05:51→11:38)
[2019-05-11] MEDS: INSULIN REGULAR, HUMAN 100 UNIT/ML 3 ML VIAL SQ PRN (05:53)
[2019-05-11] MEDS: HYDROCODONE/APAP 5/325MG 1 EACH TABLET PO PRN (06:17)
--- NOTE | 2019-05-11 06:41 | NUR ---
MS RN PT COMFORTABLY ASLEEP AND EASILY AWAKEN. NO S/S OF DISTRESS, NO C/O OF PAIN AT THIS TIME. RESPIRATIONS EVEN AND UNLABORED. NURSING CARE RENDERED, KEPT CLEAN AND DRY AND COMFORTABLE. NEEDS ATTENDED AND ANTICIPATED. WOUND CARE ORDERED. GOOD SKIN CARE AT ALL TIMES. SAFETY MEASURES AT ALL TIMES. ENDORSE TO THE NEXT SHIFT. Addendum: 05/11/19 at 0643 by DESTINEE NGO RN ASSISTED REPOSITION EVERY 2 HOURS
[2019-05-11 07:11] LABS: CREATININE 0.9 mg/dL (0.6-1.3); MAGNESIUM 2.2 mg/dL (1.8-2.4); PHOSPHORUS 4.3 mg/dL (2.5-4.9); POTASSIUM 3.5 mmol/L (3.5-5.1)
--- NOTE | 2019-05-11 07:30 | NUR ---
m/s category specialist: initial assessment received pt in bed asleep, but easily arousable. no s/s of discomfort. call light within reach. will continue to monitor.
[2019-05-11 08:00] VITALS: BP 146/85
[2019-05-11 08:36] VITALS: BP 146/85
[2019-05-11] MEDS: AMLODIPINE BESYLATE 10 MG TABLET PO SCH (08:36)
[2019-05-11] MEDS: ASPIRIN 81 MG TAB.CHEW PO SCH (08:36)
[2019-05-11] MEDS: METOPROLOL SUCCINATE 50 MG TAB.SR.24H PO SCH (08:36)
[2019-05-11] MEDS: CLOPIDOGREL BISULFATE 75 MG TABLET PO SCH (08:36)
[2019-05-11] MEDS: PANTOPRAZOLE 40 MG TABLET.DR PO SCH (08:37)
[2019-05-11] MEDS: CLOTRIMAZOLE 1% 15 GM TUBE TP SCH (08:40)
[2019-05-11] MEDS: MUPIROCIN OINT 2% 22 GM TUBE TP SCH (08:40)
[2019-05-11] MEDS ORDERED: ASPI-1169 PO (10:05)
[2019-05-11] MEDS ORDERED: Clopidogrel Bisulfate PO (10:05)
[2019-05-11] MEDS ORDERED: ATOR40TA PO (10:05)
--- NOTE | 2019-05-11 10:15 | NUR ---
m/s wood flooring specialist: md visit seen and examined by dr. mcgraw with order to d'c to board and care. order acknowledged. pt aware and called his sister about it.
--- NOTE | 2019-05-11 10:20 | NUR ---
whit/chad booth: notes wound photos taken and placed them in chart. Addendum: 05/11/19 at 1528 by TOM HAYWOOD LVN pt refused to dress wound to lle, but mepilex applied for skin protection.
--- NOTE | 2019-05-11 13:00 | NUR ---
m/s blind installer: notes pt unable to sign due to periods of confusion and disorientation/cognitive impairment. 2 licensed staff signed all d'c papers. case management spoke to pt and niece re: paul'c to board and care and agreed. for roller picker at 1500. instructed to call for assistance. will continue to monitor.
--- NOTE | 2019-05-11 14:00 | NUR ---
m/s gambling counsellor: notes resting comfortable in bed with no distress noted. will continue to monitor.
--- NOTE | 2019-05-11 15:00 | NUR ---
m/s applicator sprayer: notes h/l removed with tip intact with no bleeding, no redness, and no swelling noted.
--- NOTE | 2019-05-11 15:15 | NUR ---
m/s laundry housekeeper: notes regular transport team here and discharged pt home via wheelchair in stable condition.
--- NOTE | 2019-05-14 11:01 | NUR ---
MARY received a call from [facility] MARY Myers inquiring where pt. was discharged to. MARY informed her that pt. was discharged to a board and care in [place] and gave her the address and contact number to
== END 2019-05-11 15:15 | disposition home or self-care (01) | DRG 682 ==
LOC: ER 23:29 → MED 05-06 02:45 → TELE 05-06 02:51 → MED 05-06 08:57
PROVIDERS: ADMIT Hospitalist; ATTEND Internal Medicine
DX: N17.0 Acute kidney failure with tubular necrosis (principal); G92 Toxic encephalopathy; M62.82 Rhabdomyolysis; E11.65 Type 2 diabetes mellitus with hyperglycemia; I10 Essential (primary) hypertension; B35.1 Tinea unguium; E86.0 Dehydration; E11.42 Type 2 diabetes mellitus with diabetic polyneuropathy; F03.90 Unspecified dementia, unspecified severity, without behavioral disturbance, psychotic disturbance, mood disturbance, and anxiety; Z86.73 Personal history of transient ischemic attack (TIA), and cerebral infarction without residual deficits; R42 Dizziness and giddiness; W01.0XXA Fall on same level from slipping, tripping and stumbling without subsequent striking against object, initial encounter; Y92.9 Unspecified place or not applicable; S80.212A Abrasion, left knee, initial encounter; Z82.3 Family history of stroke; S91.202A Unspecified open wound of left great toe with damage to nail, initial encounter; I65.29 Occlusion and stenosis of unspecified carotid artery; R62.7 Adult failure to thrive; M16.10 Unilateral primary osteoarthritis, unspecified hip; B35.3 Tinea pedis; D72.829 Elevated white blood cell count, unspecified
CPT/HCPCS: 36415; 70450-TC; 70496-TC; 70498-TC; 71045-TC; 72170-TC; 80048-TC; 80061-TC; 80076-TC; 80305; 81000-TC; 82550-TC; 82962-TC; 83540-TC; 83605-TC; 83735-TC; 84100-TC; 84443-TC; 84484-TC; 85025-TC; 85652-TC; 87081-TC; 87086-TC; 93307-TC; 93880-TC; 97110-TC; 97112-TC; 97116-TC; 97530-TC; G0378; J1815; J2543; J3370; J3475; J7030; J7050; J7060; Q9967

== ENCOUNTER 2024-08-05 11:39 | Inpatient (IN) | payer SELFPAY ==
[~2024-08-05] VITALS: Ht 185.4 cm; Wt 77.1 kg
[~2024-08-05 11:39] MED LIST: AMLO-213 PO; ASPI-1169 PO; ATOR40TA PO; Clopidogrel Bisulfate PO; METF-440 PO; METO-357 PO; PANT40TA49 PO
[2024-08-05 12:54] LABS: APPEARANCE,URINE CLEAR (CLEAR); BILIRUBIN,URINE NEGATIVE (NEGATIVE); BLOOD, URINE NEGATIVE Ery/uL (NEGATIVE); COLOR,URINE YELLOW (YELLOW); KETONES,URINE NEGATIVE (NEGATIVE); LEUKOCYTE ESTERASE ,URINE NEGATIVE (NEGATIVE); NITRITE, URINE NEGATIVE (NEGATIVE); PH,URINE 7.5 (5.0-8.0); PROTEIN,URINE NEGATIVE (NEGATIVE); UGLUCOSE NEGATIVE (NEGATIVE); UROBILINOGEN,URINE 0.2 EU/dL (0.2)
[2024-08-05 13:15] LABS: BASOPHILS # (AUTO) 0.1 K/uL (0.0-0.2); BASOPHILS % (AUTO) 0.8 % (0.0-2.0); EOSINOPHILS # (AUTO) 0.1 K/uL (0.0-0.7); HEMATOCRIT 51 % (39-51); HEMOGLOBIN 17.9 g/dL (13.5-17.5); LYMPHOCYTES % (AUTO) 27.4 % (20.0-44.0); MEAN CORPUSCULAR HEMOGLOBIN 33 PG (26.0-33.0); MEAN CORPUSCULAR HGB CONC 35 g/dl (31.0-36.0); MEAN CORPUSCULAR VOLUME 95 fL (80-96); MONOCYTES # (AUTO) 0.7 K/uL (0.1-1.30); MONOCYTES % (AUTO) 9.9 % (2.0-12.0); NEUTROPHILS # (AUTO) 4.5 K/uL (1.8-8.9); NEUTROPHILS % (AUTO) 60.9 % (43.0-81.0); PLATELET COUNT (AUTO) 226 K/uL (150-450); RED BLOOD CELL COUNT(AUTO) 5.35 MIL/uL (4.5-6.0); RED CELL DISTRIBUTION WIDTH 13.6 % (11.5-15.0); WHITE BLOOD COUNT (AUTO) 7.4 K/uL (4.3-11.0)
[2024-08-05] MEDS ORDERED: GLIP1TAB6 PO (13:20)
[2024-08-05] MEDS ORDERED: LOSA25TA27 PO (13:20)
[2024-08-05] MEDS ORDERED: METO25TA6 PO (13:20)
[2024-08-05] MEDS ORDERED: ATOR40TA PO (13:20)
[2024-08-05] MEDS ORDERED: TAMS-12 PO (13:20)
[2024-08-05] MEDS ORDERED: AMLO5TAB4 PO (13:20)
[2024-08-05] MEDS ORDERED: CLOP75TA15 PO (13:20)
[2024-08-05 13:27] LABS: ALANINE AMINOTRANSFERASE 21 U/L (12-78); ALBUMIN 3.8 g/dL (3.4-5.0); ALKALINE PHOSPHATASE 86 U/L (46-116); ASPARTATE AMINOTRANSFERASE 14 U/L (15-37); BILIRUBIN,DIRECT 0.1 mg/dL (0.0-0.2); BILIRUBIN,TOTAL 0.7 mg/dL (0.2-1.0); CARBON DIOXIDE 30 mmol/L (21-32); CHLORIDE 99 mmol/L (98-107); CREATININE 0.8 mg/dL (0.6-1.3); GLUCOSE 204 mg/dL (74-106); POTASSIUM 3.9 mmol/L (3.5-5.1); SODIUM SERUM 134 mmol/L (136-145); TOTAL PROTEIN, SERUM 7.9 g/dL (6.4-8.2); UREA NITROGEN, BLOOD 11 mg/dL (7-18)
[2024-08-05 13:34] LABS: LACTIC ACID 2.4 mmol/L (0.4-2.0)
[2024-08-05] MEDS ORDERED: ACETAMINOPHEN 325 MG TABLET PO PRN (15:00)
[2024-08-05] MEDS ORDERED: ONDANSETRON HCL/PF 4 MG/2 ML VIAL IVP PRN (15:00)
[2024-08-05] MEDS ORDERED: MAG HYDROX/AL HYDROX/SIMETH 30 ML UDC PO PRN (15:00)
[2024-08-05] MEDS ORDERED: MAGNESIUM HYDROXIDE 30 ML UDC PO PRN (15:00)
[2024-08-05] MEDS ORDERED: Z GUARD REMEDY 4 OZ OINT TP PRN (15:00)
[2024-08-05] MEDS ORDERED: DEXTROSE 50%-WATER 50 ML DISP.SYRIN IV PRN (15:00)
[2024-08-05] MEDS: IV NS 0.9% 1,000 ML BAG IV ONE (15:30)
[2024-08-05] MEDS: BLOOD SUGAR DIAGNOSTIC 1 EACH STRIP IN SCH (17:18)
[2024-08-05] MEDS: IV NS 0.9% 1,000 ML IV PRN (17:18)
[2024-08-05] MEDS ORDERED: METOPROLOL TARTRATE 25 MG TABLET ONE (17:20)
[2024-08-05] MEDS: METOPROLOL TARTRATE 25 MG TABLET PO SCH (17:25)
[2024-08-05] MEDS ORDERED: INSULIN REGULAR, HUMAN 100 UNIT/ML 10 ML VIAL ONE (17:29)
[2024-08-05] MEDS: INSULIN REGULAR, HUMAN 100 UNIT/ML 3 ML VIAL SQ PRN (17:31)
[2024-08-06 07:26] LABS: ALBUMIN 3.5 g/dL (3.4-5.0); BILIRUBIN,TOTAL 0.6 mg/dL (0.2-1.0); CALCIUM, SERUM 8.7 mg/dL (8.5-10.1); CREATININE 0.7 mg/dL (0.6-1.3); POTASSIUM 3.9 mmol/L (3.5-5.1); TOTAL PROTEIN, SERUM 6.7 g/dL (6.4-8.2)
[2024-08-06 07:33] LABS: BASOPHILS % (AUTO) 0.6 % (0.0-2.0); EOSINOPHILS # (AUTO) 0.1 K/uL (0.0-0.7); EOSINOPHILS % (AUTO) 1.5 % (0.0-6.0); HEMATOCRIT 48 % (39-51); HEMOGLOBIN 16.3 g/dL (13.5-17.5); LYMPHOCYTES # (AUTO) 2.4 K/uL (0.8-4.8); LYMPHOCYTES % (AUTO) 28.8 % (20.0-44.0); MEAN CORPUSCULAR HEMOGLOBIN 33 PG (26.0-33.0); MEAN CORPUSCULAR HGB CONC 34 g/dl (31.0-36.0); MEAN CORPUSCULAR VOLUME 95 fL (80-96); MONOCYTES # (AUTO) 0.7 K/uL (0.1-1.30); MONOCYTES % (AUTO) 8.8 % (2.0-12.0); NEUTROPHILS # (AUTO) 4.9 K/uL (1.8-8.9); NEUTROPHILS % (AUTO) 60.3 % (43.0-81.0); PLATELET COUNT (AUTO) 241 K/uL (150-450); RED BLOOD CELL COUNT(AUTO) 4.99 MIL/uL (4.5-6.0); RED CELL DISTRIBUTION WIDTH 13.1 % (11.5-15.0); WHITE BLOOD COUNT (AUTO) 8.2 K/uL (4.3-11.0)
[2024-08-06 08:00] VITALS: BP 136/85; TEMP 97.5; O2SAT 96
[2024-08-06] MEDS: TAMSULOSIN 0.4 MG CAP.SR.24H PO SCH (09:00)
[2024-08-06] MEDS: LOSARTAN POTASSIUM 25 MG TABLET PO SCH (09:00)
[2024-08-06] MEDS: CLOPIDOGREL BISULFATE 75 MG TABLET PO SCH (09:00)
[2024-08-06] MEDS: ATORVASTATIN 40 MG TABLET PO SCH (09:00)
[2024-08-06] MEDS: AMLODIPINE BESYLATE 5 MG TABLET PO SCH (09:00)
[2024-08-06] MEDS ORDERED: IV NS 0.9% 250 ML IV ONE (14:01)
[2024-08-06] MEDS ORDERED: IOHEXOL-350 100 ML VIAL IV ONE (14:01)
[2024-08-06 16:00] VITALS: BP 141/80; TEMP 98.6; O2SAT 96
[2024-08-06 20:00] VITALS: BP 115/62; TEMP 98.2; O2SAT 97
[2024-08-07] VITALS: BP 128/73; TEMP 98.2; O2SAT 94
[2024-08-07 04:00] VITALS: BP 147/81; TEMP 98.4; O2SAT 98
[2024-08-07 06:48] LABS: BASOPHILS # (AUTO) 0.1 K/uL (0.0-0.2); BASOPHILS % (AUTO) 0.8 % (0.0-2.0); EOSINOPHILS # (AUTO) 0.1 K/uL (0.0-0.7); EOSINOPHILS % (AUTO) 1.4 % (0.0-6.0); HEMATOCRIT 44 % (39-51); HEMOGLOBIN 15.3 g/dL (13.5-17.5); LYMPHOCYTES # (AUTO) 2.5 K/uL (0.8-4.8); LYMPHOCYTES % (AUTO) 33.6 % (20.0-44.0); MEAN CORPUSCULAR HEMOGLOBIN 33 PG (26.0-33.0); MEAN CORPUSCULAR HGB CONC 35 g/dl (31.0-36.0); MEAN CORPUSCULAR VOLUME 95 fL (80-96); MONOCYTES # (AUTO) 0.7 K/uL (0.1-1.30); NEUTROPHILS # (AUTO) 4.1 K/uL (1.8-8.9); NEUTROPHILS % (AUTO) 55.2 % (43.0-81.0); PLATELET COUNT (AUTO) 241 K/uL (150-450); RED BLOOD CELL COUNT(AUTO) 4.65 MIL/uL (4.5-6.0); RED CELL DISTRIBUTION WIDTH 13.3 % (11.5-15.0); WHITE BLOOD COUNT (AUTO) 7.4 K/uL (4.3-11.0)
[2024-08-07 07:00] VITALS: BP 133/86; TEMP 97.5; O2SAT 97
[2024-08-07 07:03] LABS: CALCIUM, SERUM 8.4 mg/dL (8.5-10.1); CARBON DIOXIDE 26 mmol/L (21-32); CHLORIDE 102 mmol/L (98-107); CREATININE 0.7 mg/dL (0.6-1.3); GLUCOSE 152 mg/dL (74-106); POTASSIUM 3.9 mmol/L (3.5-5.1); SODIUM SERUM 136 mmol/L (136-145); UREA NITROGEN, BLOOD 15 mg/dL (7-18)
[2024-08-07 16:00] VITALS: BP 135/83; TEMP 97.5; O2SAT 98
[2024-08-07 20:00] VITALS: BP 102/57; TEMP 97.5; O2SAT 94
[2024-08-08 07:00] VITALS: BP 117/57; TEMP 98.1; O2SAT 98
[2024-08-08 08:33] VITALS: BP 117/57
== END 2024-08-08 18:12 | disposition home health service (06) | DRG 304 ==
LOC: ER 12:48 → TELE 19:48 → MED 08-07 09:19
PROVIDERS: ADMIT Nurse Practitioner Acute Care; ATTEND Student in an Organized Health Care Education/Training Program
DX: I16.0 Hypertensive urgency (principal); G92.8 Other toxic encephalopathy; E87.20 Acidosis, unspecified; N40.0 Benign prostatic hyperplasia without lower urinary tract symptoms; Z86.73 Personal history of transient ischemic attack (TIA), and cerebral infarction without residual deficits; I10 Essential (primary) hypertension; M19.90 Unspecified osteoarthritis, unspecified site; E11.9 Type 2 diabetes mellitus without complications; Z79.84 Long term (current) use of oral hypoglycemic drugs; Z79.02 Long term (current) use of antithrombotics/antiplatelets; Z79.899 Other long term (current) drug therapy; E78.5 Hyperlipidemia, unspecified; Z82.3 Family history of stroke; R53.1 Weakness; F29 Unspecified psychosis not due to a substance or known physiological condition; F03.90 Unspecified dementia, unspecified severity, without behavioral disturbance, psychotic disturbance, mood disturbance, and anxiety
CPT/HCPCS: 36415; 70450-TC; 70496-TC; 70498-TC; 71045-TC; 80048-TC; 80053-TC; 80076-TC; 82140-TC; 82550-TC; 82607-TC; 82962-TC; 83605-TC; 83735-TC; 84100-TC; 84443-TC; 84484-TC; 85025-TC; 87040-TC; 92526; 92611-TC; 97110-TC; 97112-TC; 97116-TC; 97530-TC; G0378; J1815; J7030; J7040; J7050; Q9967

== ENCOUNTER 2025-01-28 15:50 | Inpatient (IN) | payer SELFPAY ==
[~2025-01-28] VITALS: Ht 185.4 cm; Wt 83.5 kg
[~2025-01-28 15:50] MED LIST changes: -AMLO-213 PO; +AMLO5TAB4 PO; -ASPI-1169 PO; +CLOP75TA15 PO; -Clopidogrel Bisulfate PO; +GLIP1TAB6 PO; +LOSA25TA27 PO; -METF-440 PO; -METO-357 PO; +METO25TA6 PO; -PANT40TA49 PO; +TAMS-12 PO
[2025-01-28] MEDS ORDERED: ONDANSETRON HCL/PF 4 MG/2 ML VIAL ONE (16:46)
[2025-01-28] MEDS ORDERED: MORPHINE SULFATE INJ 4 MG/ML DISP.SYRIN ONE (16:46)
[2025-01-28 17:02] LABS: BASOPHILS % (AUTO) 0.3 % (0.0-2.0); EOSINOPHILS % (AUTO) 0.2 % (0.0-6.0); HEMATOCRIT 47 % (39-51); HEMOGLOBIN 16.5 g/dL (13.5-17.5); INR 1.13 (0.91-1.10); LYMPHOCYTES # (AUTO) 0.7 K/uL (0.8-4.8); LYMPHOCYTES % (AUTO) 6.7 % (20.0-44.0); MEAN CORPUSCULAR HEMOGLOBIN 33 PG (26.0-33.0); MEAN CORPUSCULAR HGB CONC 35 g/dl (31.0-36.0); MEAN CORPUSCULAR VOLUME 94 fL (80-96); MONOCYTES # (AUTO) 1.3 K/uL (0.1-1.30); MONOCYTES % (AUTO) 11.5 % (2.0-12.0); NEUTROPHILS # (AUTO) 8.8 K/uL (1.8-8.9); NEUTROPHILS % (AUTO) 81.3 % (43.0-81.0); PARTIAL THROMBOPLASTIN TIME 24.8 SEC (24.3-34.3); PLATELET COUNT (AUTO) 400 K/uL (150-450); PROTHROMBIN TIME 11.9 SECS (9.2-11.1); RED BLOOD CELL COUNT(AUTO) 4.95 MIL/uL (4.5-6.0); RED CELL DISTRIBUTION WIDTH 12.7 % (11.5-15.0); WHITE BLOOD COUNT (AUTO) 10.9 K/uL (4.3-11.0)
[2025-01-28 17:09] LABS: LACTIC ACID 1.6 mmol/L (0.4-2.0)
[2025-01-28 17:17] LABS: CALCIUM, SERUM 9.6 mg/dL (8.5-10.1); CARBON DIOXIDE 24 mmol/L (21-32); CHLORIDE 99 mmol/L (98-107); CREATININE 0.9 mg/dL (0.6-1.3); GLUCOSE 231 mg/dL (74-106); SODIUM SERUM 135 mmol/L (136-145); UREA NITROGEN, BLOOD 12 mg/dL (7-18)
[2025-01-28 17:23] LABS: ALANINE AMINOTRANSFERASE 14 U/L (12-78); ALBUMIN 3.5 g/dL (3.4-5.0); ALKALINE PHOSPHATASE 78 U/L (46-116); ASPARTATE AMINOTRANSFERASE 15 U/L (15-37); BILIRUBIN,DIRECT 0.3 mg/dL (0.0-0.2); BILIRUBIN,TOTAL 1.3 mg/dL (0.2-1.0); TOTAL PROTEIN, SERUM 7.8 g/dL (6.4-8.2)
[2025-01-28] MEDS: IV NS 0.9% 1,000 ML BAG IV ONE (17:25)
[2025-01-28] MEDS: ONDANSETRON HCL/PF - ER 4 MG/2 ML VIAL IV ONE (17:26)
[2025-01-28] MEDS: MORPHINE SULFATE INJ 2 MG/ML DISP.SYRIN IV ONE (17:26)
[2025-01-28 19:07] LABS: APPEARANCE,URINE CLEAR (CLEAR); BILIRUBIN,URINE 1+ (NEGATIVE); BLOOD, URINE 2+ Ery/uL (NEGATIVE); COLOR,URINE YELLOW (YELLOW); KETONES,URINE 1+ mg/dL (NEGATIVE); LEUKOCYTE ESTERASE ,URINE NEGATIVE (NEGATIVE); NITRITE, URINE NEGATIVE (NEGATIVE); PH,URINE 6.5 (5.0-8.0); PROTEIN,URINE 1+ mg/dl (NEGATIVE); UGLUCOSE NEGATIVE (NEGATIVE)
[2025-01-28 19:14] LABS: ADD URINE CULTURE NO; BACTERIA,URINE Few /HPF (None Seen); SQUAMOUS EPITHELIAL CELL,UR Rare /HPF (None Seen); WBC,URINE 0-2 /HPF (0-3)
[2025-01-28] MEDS ORDERED: ACETAMINOPHEN 325 MG TABLET PO PRN (21:30)
[2025-01-28] MEDS ORDERED: hydrALAZINE HCL IV 20 MG VIAL IV PRN (21:30)
[2025-01-28] MEDS ORDERED: ONDANSETRON HCL/PF 4 MG/2 ML VIAL IVP PRN (21:30)
[2025-01-28] MEDS ORDERED: MORPHINE SULFATE INJ 2 MG/ML DISP.SYRIN IV PRN (21:30)
[2025-01-28] MEDS ORDERED: DEXTROSE 50%-WATER 50 ML DISP.SYRIN IV PRN ×2 (21:30→23:30)
[2025-01-28 21:31] VITALS: BP 164/89; TEMP 97.7; O2SAT 95
[2025-01-28 22:00] VITALS: BP 160/89; TEMP 97.7; O2SAT 95
[2025-01-28] MEDS: IV NS 0.9% 1,000 ML IV SCH (22:01)
[2025-01-28] MEDS: BLOOD SUGAR DIAGNOSTIC 1 EACH STRIP IN SCH (22:02)
[2025-01-28] MEDS: INSULIN REGULAR, HUMAN 100 UNIT/ML 3 ML VIAL SQ PRN (22:04)
[2025-01-28] MEDS: TOBRAMYCIN/DEXAMETH OPHTH DORPS 2.5 ML BOTTLE EACHEYE SCH (23:30)
[2025-01-28] MEDS: BLOOD SUGAR DIAGNOSTIC 1 EACH STRIP VI SCH (23:30)
[2025-01-29 06:56] LABS: BASOPHILS # (AUTO) 0.1 K/uL (0.0-0.2); BASOPHILS % (AUTO) 0.7 % (0.0-2.0); EOSINOPHILS # (AUTO) 0.1 K/uL (0.0-0.7); EOSINOPHILS % (AUTO) 1.1 % (0.0-6.0); HEMATOCRIT 43 % (39-51); HEMOGLOBIN 14.6 g/dL (13.5-17.5); LYMPHOCYTES # (AUTO) 1.5 K/uL (0.8-4.8); LYMPHOCYTES % (AUTO) 19.3 % (20.0-44.0); MEAN CORPUSCULAR HEMOGLOBIN 33 PG (26.0-33.0); MEAN CORPUSCULAR HGB CONC 34 g/dl (31.0-36.0); MEAN CORPUSCULAR VOLUME 96 fL (80-96); MONOCYTES # (AUTO) 1.1 K/uL (0.1-1.30); MONOCYTES % (AUTO) 13.8 % (2.0-12.0); NEUTROPHILS # (AUTO) 5.1 K/uL (1.8-8.9); NEUTROPHILS % (AUTO) 65.1 % (43.0-81.0); PLATELET COUNT (AUTO) 344 K/uL (150-450); RED BLOOD CELL COUNT(AUTO) 4.48 MIL/uL (4.5-6.0); RED CELL DISTRIBUTION WIDTH 12.7 % (11.5-15.0); WHITE BLOOD COUNT (AUTO) 7.8 K/uL (4.3-11.0)
[2025-01-29 07:00] VITALS: BP 150/78; TEMP 97.5; O2SAT 96
[2025-01-29 07:06] LABS: ALBUMIN 2.8 g/dL (3.4-5.0); BILIRUBIN,TOTAL 0.9 mg/dL (0.2-1.0); CALCIUM, SERUM 8.9 mg/dL (8.5-10.1); CREATININE 0.7 mg/dL (0.6-1.3); PHOSPHORUS 3.5 mg/dL (2.5-4.9); POTASSIUM 3.6 mmol/L (3.5-5.1); TOTAL PROTEIN, SERUM 6.7 g/dL (6.4-8.2)
[2025-01-29] MEDS: INSULIN REGULAR, HUMAN 100 UNIT/ML 3 ML VIAL SQ PRN (07:21)
[2025-01-29] MEDS ORDERED: TOBRAMYCIN/DEXAMETH OPHTH DORPS 2.5 ML BOTTLE EACHEYE SCH (07:27)
[2025-01-29 08:00] VITALS: BP 150/78; TEMP 97.5; O2SAT 96
[2025-01-29] MEDS: HEPARIN SODIUM, PORCINE 5000 UNITS/1 ML VIAL SQ SCH (09:00)
[2025-01-29] MEDS: CLOPIDOGREL BISULFATE 75 MG TABLET PO SCH (09:34)
[2025-01-29] MEDS: TAMSULOSIN 0.4 MG CAP.SR.24H PO SCH (09:34)
[2025-01-29] MEDS: AMLODIPINE BESYLATE 5 MG TABLET PO SCH (09:35)
[2025-01-29] MEDS: METOPROLOL TARTRATE 25 MG TABLET PO SCH (09:35)
[2025-01-29] MEDS: LOSARTAN POTASSIUM 25 MG TABLET PO SCH (09:35)
[2025-01-29] MEDS: ATORVASTATIN 40 MG TABLET PO SCH (09:35)
[2025-01-29] MEDS: IV NS 0.9% 1,000 ML IV PRN (11:11)
[2025-01-29] MEDS: TOBRAMYCIN/DEXAMETH OPHTH DORPS 2.5 ML BOTTLE EACHEYE SCH (12:15)
[2025-01-29 16:00] VITALS: BP 132/68; TEMP 98.1; O2SAT 94
[2025-01-29 20:00] VITALS: BP 124/66; TEMP 97.5; O2SAT 96
[2025-01-29] MEDS: ZOLPIDEM TARTRATE 5 MG TABLET PO PRN (22:29)
[2025-01-29] MEDS: *INSULIN REGULAR(HUMULIN R)HUM 100 UNIT/ML VIAL SQ PRN (22:36)
[2025-01-30 07:00] VITALS: BP 169/87; TEMP 97.5; O2SAT 94
[2025-01-30 07:57] LABS: CALCIUM, SERUM 8.2 mg/dL (8.5-10.1); CREATININE 0.7 mg/dL (0.6-1.3); POTASSIUM 3.3 mmol/L (3.5-5.1)
[2025-01-30 08:19] LABS: BASOPHILS % (AUTO) 0.4 % (0.0-2.0); EOSINOPHILS # (AUTO) 0.1 K/uL (0.0-0.7); EOSINOPHILS % (AUTO) 1.4 % (0.0-6.0); HEMATOCRIT 42 % (39-51); HEMOGLOBIN 14.3 g/dL (13.5-17.5); LYMPHOCYTES # (AUTO) 1.6 K/uL (0.8-4.8); LYMPHOCYTES % (AUTO) 19.4 % (20.0-44.0); MEAN CORPUSCULAR HEMOGLOBIN 32 PG (26.0-33.0); MEAN CORPUSCULAR HGB CONC 34 g/dl (31.0-36.0); MEAN CORPUSCULAR VOLUME 95 fL (80-96); MONOCYTES # (AUTO) 0.9 K/uL (0.1-1.30); MONOCYTES % (AUTO) 10.6 % (2.0-12.0); NEUTROPHILS # (AUTO) 5.6 K/uL (1.8-8.9); NEUTROPHILS % (AUTO) 68.2 % (43.0-81.0); PLATELET COUNT (AUTO) 340 K/uL (150-450); RED BLOOD CELL COUNT(AUTO) 4.44 MIL/uL (4.5-6.0); RED CELL DISTRIBUTION WIDTH 12.7 % (11.5-15.0); WHITE BLOOD COUNT (AUTO) 8.1 K/uL (4.3-11.0)
[2025-01-30 08:41] VITALS: BP 159/68
[2025-01-30 10:32] VITALS: BP 169/87; TEMP 97.5; O2SAT 94
[2025-01-30] MEDS: POTASSIUM CHLORIDE 20 MEQ TAB.PRT.SR PO SCH (11:29)
== END 2025-01-30 16:30 | disposition home health service (06) | DRG 641 ==
LOC: ER 15:52 → MED 20:54
PROVIDERS: ADMIT Internal Medicine; ATTEND Internal Medicine
DX: E86.0 Dehydration (principal); R62.7 Adult failure to thrive; F03.90 Unspecified dementia, unspecified severity, without behavioral disturbance, psychotic disturbance, mood disturbance, and anxiety; W19.XXXA Unspecified fall, initial encounter; Y93.9 Activity, unspecified; E11.9 Type 2 diabetes mellitus without complications; E78.5 Hyperlipidemia, unspecified; H10.9 Unspecified conjunctivitis; I10 Essential (primary) hypertension; I25.10 Atherosclerotic heart disease of native coronary artery without angina pectoris; E80.6 Other disorders of bilirubin metabolism; Z86.73 Personal history of transient ischemic attack (TIA), and cerebral infarction without residual deficits; Z91.199 Patient's noncompliance with other medical treatment and regimen due to unspecified reason; R53.1 Weakness; Z68.24 Body mass index [BMI] 24.0-24.9, adult; N40.0 Benign prostatic hyperplasia without lower urinary tract symptoms; M16.0 Bilateral primary osteoarthritis of hip; Z79.84 Long term (current) use of oral hypoglycemic drugs; Y92.009 Unspecified place in unspecified non-institutional (private) residence as the place of occurrence of the external cause
CPT/HCPCS: 36415; 70450-TC; 71045-TC; 73502; 73700-TC; 80048-TC; 80053-TC; 80076-TC; 81001; 82550-TC; 82962-TC; 83605-TC; 83735-TC; 84100-TC; 84484-TC; 85025-TC; 85730-TC; 87040-TC; 87086-TC; 93307-TC; 97110-TC; 97116-TC; 97530-TC; 97535-TC; A4223; G0378; J1644; J1815; J2270; J2405; J7030